=== PATIENT | male | born 1950 | race Caucasian/White ===

== ENCOUNTER → 2021-11-24 12:55 | Outpatient (CLI) | payer MEDICARE, SELFPAY ==
[2021-11-24 15:27] LABS: COVID19 -Nasal RAPID Negative (Negative)
== END ==
PROVIDERS: Visit Provider Family Medicine Sleep Medicine
DX: Z20.822 Contact with and (suspected) exposure to COVID-19 (principal)
CPT/HCPCS: 87635; C9803

== ENCOUNTER 2021-11-26 08:12 | Day surgery (SDC) | payer MEDICARE, SELFPAY ==
[2021-11-19 10:39] VITALS: BMI 43.7
[2021-11-26] VITALS (14 sets, daily range): BP systolic 140–167; BP diastolic 53–66; PULSE 63–82; RESP 12–18; TEMP 35.7–36.8; O2SAT 93–96; BMI 43.5; BMI 44.1
--- NOTE | 2021-11-26 06:00 | DI.RAD.S_ITS ---
PROCEDURE: XR KNEE LT 1TO2V INDICATIONS: TKA TECHNIQUE: 2 view(s) of the knee acquired. COMPARISON: None. FINDINGS: Bones: Patient is status post knee joint arthroplasty. Hardware components are in expected positions. Linear lucency traverses the medial tibial plateau as well as the fibular head. Soft tissues: Overlying postoperative changes are noted. IMPRESSION: 1. Indeterminate lucency within the medial tibial plateau and fibular head, possibly indicating nondisplaced fractures. This could be further assessed with CT, if clinically indicated. Dictated by: Bella Romo M.D. on 11/26/2021 at 14:19 Approved by: Bella Romo M.D. on 11/26/2021 at 14:21
[2021-11-26] MEDS: LACTATED RINGERS 1,000 ML 42 ML IV ×2 (09:21→13:14)
[2021-11-26] MEDS: ACETAMINOPHEN 325 MG TABLET 975 MG PO (09:59)
[2021-11-26] MEDS: PREGABALIN 75 MG CAPSULE PO (10:00)
[2021-11-26] MEDS: CELECOXIB 200 MG CAPSULE PO (10:00)
--- NOTE | 2021-11-26 10:40 | PM.PREOP ---
Pre-operative Note COVID-19 COVID-19 status: Negative Result date/Date tested (Pos, Neg/Pending): 11/24/21 Interval Note History & Physical reviewed/Exam performed by Physician: Yes Changes to H&P: No
[2021-11-26] MEDS: CEFAZOLIN 3 GM IN 0.9 % NACL 3 GM/100 ML PLAST..BAG IV (12:00)
[2021-11-26] MEDS: TRANEXAMIC ACID 1,000 MG VIAL 2000 MG INJ ×2 (12:10→13:19)
--- NOTE | 2021-11-26 12:21 | SUR.OPER ---
Supine on padded OR bed. Pillow under head, arms secured on padded armboards <90 degree abduction. Safety belt across torso. Non-operative leg secured with tape over blanket over lower leg. Operative leg secured in Sid boot. Foam padded brace at thigh of operative leg.
[2021-11-26] MEDS: BUPIVACAINE LIPOSOME 266 MG/20 ML VIAL INJ (12:29)
[2021-11-26] MEDS: BUPIVACAINE 0.25% (PF) 60 ML, EPINEPHrine 0.3 MG INJ (12:29)
[2021-11-26] MEDS: MORPHINE 4 MG/ML INJ INJ (12:30)
--- NOTE | 2021-11-26 13:40 | P.OP_ITS ---
Operative Date/Time/Diagnoses Date of procedure: 11/26/21 Time of procedure: 13:40 Pre-op diagnosis: Left knee osteoarthritis Post-op diagnosis: same Procedure & Clinicians Procedure: Left total knee replacement Same procedure as scheduled: Yes Indications: The patient has had progressively worsening left knee pain with radiographic changes consistent with arthritis. Non-operative management has failed and the patient has requested total knee replacement. The risks, benefits and alternatives to surgery were discussed with the patient prior to proceeding. Risks discussed included, but were not limited to, failure to relieve pain, stiffness, infection, nerve damage, deep venous thrombosis, pulmonary embolism, stroke, coma, heart attack, permanent paralysis and , as well as the potential need for eventual revision of the prosthetic. Surgeon: Radu Ortiz Rig Hand: Priyanka Benton Click Yes if Unassisted: No Anesthesia Type: General, Spinal and Local Operative Notes Findings: Severe tricompartmental osteoarthritis with mild patella baja. Closure Type: primary Specimen(s): none sent Prosthetic devices, grafts, tissues, transplants, or devices: Implants used in this procedure were manufactured by the [employer] and [employer] and included the BCS II Journey total knee replacement with a size 5 left cobalt chromium femur, a size 5 left non porous tibial base plate, a 9 mm cross-linked polyethylene tibial insert and a 35 mm oval Monica II patella. Applied: implant(s) Estimated Blood Loss (mL): 25 Blood products transfused: none Tourniquet time (min): 53 Procedure in detail: The patient was seen in the pre-operative area, where the left knee was identified as the operative site and this was marked with my initials. The patient received pre-operative antibiotics, and was taken to the operating room and placed on the operative table in the supine position. After satisfactory anesthesia, a time study statistician out was performed. The left leg was encircled with a tourniquet about the proximal thigh, and the leg was prepared from the toes to the tourniquet with ChloroPrep in the usual fashion and draped through sterile drapes. The leg was elevated and exsanguinated with Eschmark bandage and the tourniquet inflated to 250 mmHg pressure. The knee was approached through an approximately 18 cm incision centered over the patella and carried into the knee through a medial parapatellar arthrotomy. The anterior osteophytes and soft tissues were removed. The rotational landmarks of Lockbourne's line and the transepicondylar axis were marked on the femur with electrocautery, and intramedullary guide holes for the femur and tibia were created. The distal femoral cut was made in 6 degrees of valgus using the intramedullary guide at the +2 cut setting due to his flexion contracture. The proximal tibial cut was then made using the intramedullary guide, taking 9 mm of bone off the less involved side. The extension gap was checked and the rotation of the femoral component confirmed with the gap balancing blocks. The anterior, posterior and chamfer cuts were then made. The posterior osteophytes and soft tissues were then removed. The posterior capsule was injected with part of a mixture of 60 ml 0.25% Marcaine mixed with 20 ml Exparel and 4 mg of morphine for post-operative pain control. The remainder of this mixture was injected into the capsule and subcutaneous tissues during cement curing. The tibia was prepared with the rotation set by an extra medullary guide. Trial tibial and femoral components were then placed and the intercondylar notch cut through the femoral trial. Range of motion was 0-135 degrees, with good stability throughout the range. The patella was then cut to accommodate the patellar prosthetic. There was no need for a lateral release. The trials were then removed, and the femoral hole plugged with a bone plug. The bone was prepared with pulsatile lavage, and dried with a sponge. Cement was applied and the final prosthetics placed. Excess cement was removed during and after cement curing. After confirming there was no extruded cement posteriorly, the final tibial insert was placed. The knee was copiously irrigated and the tourniquet deflated. Hemostasis was obtained. The capsule was closed with interrupted # 2 polyester sutures. The subcutaneous layer was closed with 3-0 Vicryl, and the skin with a running 3-0 V-Lock suture and Dermabond. An Aquacel Ag dressing was applied and the patient was taken to recovery having tolerated the procedure well. Complications: none Post-operative Condition: stable Disposition: PACU Plan for aftercare: The patient will be maintained on a standard total knee replacement protocol with weight bearing as tolerated. The patient will receive aspirin and sequential compression devices for DVT prophylaxis. The patient will be discharged home when safe for the home environment.
[2021-11-26] MEDS: LACTATED RINGERS 1,000 ML 100 ML IV (14:30)
--- NOTE | 2021-11-26 15:32 | PC.NURSE ---
Addendum entered by Otto Farooq R.N. 11/26/21 15:36: pt reports mild sensation return in LLE. Original Note: pt arrived on Acute Care unit 11/26/2021 @ 7119. SCD's applied, LR @ 100 mL/hr started, and pt re[pr Arrival VS: BP: 146/55 HR: 68 bpm Resp: 14 O2Sat: 96% RA Temp: 97.5 F px: 0/10
[2021-11-26] MEDS: OXYCODONE IR 5 MG TABLET PO (16:16)
[2021-11-26] MEDS: IBUPROFEN 400 MG TABLET PO ×2 (16:16→20:55)
[2021-11-26] MEDS: ACETAMINOPHEN 325 MG TABLET 650 MG PO (19:08)
[2021-11-26] MEDS: lisinopriL 5 MG TABLET 2.5 MG PO (20:55)
[2021-11-26] MEDS: DOCUSATE 100 MG CAPSULE PO (20:55)
[2021-11-26] MEDS: ASPIRIN EC 81 MG TABLET PO (20:55)
[2021-11-26] MEDS: ATORVASTATIN 20 MG TABLET 80 MG PO (20:55)
[2021-11-27 00:11] VITALS: BP 142/53; PULSE 82; RESP 16; TEMP 37.2; O2SAT 94
[2021-11-27] MEDS: ACETAMINOPHEN 325 MG TABLET 650 MG PO ×3 (00:14→12:10)
[2021-11-27] MEDS: IBUPROFEN 400 MG TABLET PO ×4 (00:15→12:10)
[2021-11-27] MEDS: SODIUM CHLORIDE 0.9% FLUSH 10 ML IV (01:11)
[2021-11-27 06:42] LABS: Hematocrit 35.4 % (41-53); Hemoglobin 12.2 g/dL (13.5-17.5)
--- NOTE | 2021-11-27 07:39 | PM.DS.1 ---
History of Present Illness History of Present Illness Date Patient Seen: 11/27/21 Time Patient Seen: 07:39 Chief complaint: LT TKA 11/26 *OPB* Narrative: History and physical is contained in the chart previously completed note. Please refer to that note for this information. Discharge Providers Provider Date of admission: November 26, 2021 Discharge Date: 11/27/21 Primary care physician: Sonal Martinez MD Consults: 11/26/21 14:12 Consult to Discharge Planning Routine Comment: Consult to Physical Therapy Evaluate & Treat Comment: Physician Instructions: postop TKA protocol Discharge provider: Radu Ortiz MD Summary Hospital Course Discharge Diagnosis: 1. Left knee osteoarthritis 2. Post hemorrhagic anemia 3. Morbid obesity Hospital Course: Patient was admitted to the hospital and taken directly to the operating room on November 26, 2021. He underwent a total knee replacement without complication. The procedure was made more difficult by the patient's obesity. On postoperative day 1 he appeared stable with a mild post hemorrhagic anemia. At the time of this dictation the plan is for him to have physical therapy this morning and then be discharged to home. Status at Discharge Cognitive/behavioral status at discharge: oriented Functional status at discharge: uses cane/walker Overall status at discharge: patient is progressing back to baseline Time Spent with Patient Time spent: Less than 30 minutes Exam Vital Signs (past 8 hours): - 11/27/21 00:11 Temperature 98.9 F Pulse Rate 82 Respiratory Rate 16 Blood Pressure 142/53 H Pulse Oximetry 94 Oxygen Delivery Method Room Air Narrative Exam Narrative: Left knee wound is dressed with no drainage on the bandage. Calf is soft. Light touch and motion are intact in the left lower extremity. 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 He has a mild post hemorrhagic anemia which should resolve spontaneously. Plan of Treatment: Physical therapy this morning with plan to discharge afterwards. Follow-up in my office in 2 weeks. Discharge medications have been sent to his pharmacy. These include oxycodone for pain, Tylenol and ibuprofen for additional pain control and aspirin for DVT prophylaxis. Discharge Plan Discharge Plan Patient Disposition: Home Discharge orders & Medications Discharge Orders: Discharge (Order); Ordered 11/27/21 Ordered By: Radu Ortiz Prescriptions: New acetaminophen 325 mg Tablet 650 mg PO Q6HR 30 Days 0RF aspirin 81 mg Tablet,Delayed Release (Dr/Ec) 81 mg PO BID 42 Days Qty: 84 0RF ibuprofen 400 mg Tablet 400 mg PO Q4HR 30 Days 0RF oxycodone 5 mg Tablet 5 mg PO Q4H PRN (Reason: Pain, Moderate (4-6)) Qty: 40 0RF Continued tamsulosin 0.4 mg Capsule 0.4 mg PO BEDTIME 0RF diclofenac sodium 75 mg Tablet,Delayed Release (Dr/Ec) 75 mg PO DAILY 0RF fluticasone propionate 50 mcg/actuation [place],Suspension 1 spray INTRANASAL DAILY PRN (Reason: Seasonal allergies) 0RF Rx Instructions: administer into each nostril lisinopril 2.5 mg Tablet 2.5 mg PO BEDTIME 0RF rosuvastatin 40 mg Tablet 40 mg PO BEDTIME 0RF Discontinued aspirin 81 mg Capsule 81 mg PO DAILY 0RF Follow up/Referrals: Radu Ortiz MD [Physician] - 2 Weeks Sonal Martinez MD [Primary Care Provider] - Diet/Activity/Treatments Diet: Diet as Tolerated and Regular Activity: You may bear weight as tolerated on your left leg. Cold/Heat Therapy: You may apply ice for 15 minutes every hour to the left knee as needed for pain control. Skin/Wound/Dressing Care Report to your healthcare provider any signs of infection, such as:: chills, fever, night sweats, increased pain, unusual drainage and unusual redness Dressing: You may remove the Ollie wrap 3 days after surgery and shower normally with the deeper dressing in place. Leave the deeper dressing in place until you are seen in follow-up. If the central strip of the deeper dressing becomes saturated with either water or blood, please call the office to have it evaluated. Visit Report/Discharge Packet Instructions: DI for Knee Replacement Stand Alone Forms: Surgery Discharge Discharge Data Primary Care Provider: Sonal Martinez Attending Provider: Radu Ortiz VTE Deep Vein Thrombosis/Pulmonary Embolism Present on Admission: No
[2021-11-27 08:00] VITALS: BP 119/54; PULSE 77; RESP 16; TEMP 37.4; O2SAT 94
[2021-11-27] MEDS: ASPIRIN EC 81 MG TABLET PO (08:09)
[2021-11-27] MEDS: DOCUSATE 100 MG CAPSULE PO (08:09)
[2021-11-27] MEDS: OXYCODONE IR 10 MG TABLET PO ×2 (08:38→12:10)
--- NOTE | 2021-11-27 10:41 | CM.DANOTE ---
DCP: Case received, EMR reviewed and met with patient. Introduced self and role. Was able to obtain information regarding patient's baseline activity status prior to his surgery. DCP assessment completed with information currently available. Patient is a 71 year old male who admitted yesterday morning to the care of the orthopedic team. PCP: Dr. Martinez. Payer: confirmed: Medicare/[employer]. Patient came to the hospital via private vehicle for a surgical procedure. Patient had a left total knee replacement. Patient has history of unilateral primary osteoarthritis. Met with patient in his room. He is alert and oriented, and was sitting up in his chair by his bed. Confirmed with him that he resides in [facility] with spouse, Colette. At his baseline, he is independent, drives, and uses no DME. He and his also have a place in [place], and recently came back from there. P: Patient has discharge orders for home today, pending working with Georgette Hill RN/Director Law Enforcement Discharge Planning/Care Management CM Discharge Assessment Start: 11/27/21 10:39 Freq: Status: Active Protocol: Document 11/27/21 10:39 (Rec: 11/27/21 10:41 [id number]) Discharge Planning Assessment Assigned Carpet Finishing Supervisor Ruba Hill RN/Director Law Enforcement Advance Directives? No History Provided By Patient,Medical Record Prior Living Arrangements House Household Members spouse Type of transporation used prior to Drives own vehicle admit Independent with ADL's Yes Is patient alert and oriented? Yes Caregiver for Another No Patient/Family Preference OP PT Therapy Barriers to Discharge No Discharge Plan Home Transportation Arrangement Spouse Referrals Initiated None needed Review Status In Process Next Review Type Continued Stay Review Pre-Anesthesia Assessment Start: 11/19/21 10:39 Freq: Status: Active Protocol: Document 11/19/21 10:39 CAB (Rec: 11/19/21 11:32 CAB [id number]) Pre-Anesthesia Assessment Patient Information Reviewed Via Phone Assessment Assessment Completed With Patient H&P Completed Within 30 Days Yes Diagnostic Results BMP/CMP,CBC,EKG Comment Outside labs/ECG scanned, COVID screen @ 11/24/21 Primary Care Provider Sonal Martinez Seen Specialist in Last 12 Months Yes Specialist Seen Orthopedist Primary Language Frisian Policy Change Clerks Supervisor Required No Height 5 ft 9 in Weight 296 lb Body Mass Index (BMI) 43.7 Hearing Ability Normal Visual Assist Glasses Dentition Type Teeth, Natural Present,Teeth, Missing Barriers to Learning None Hx Anesthesia Reactions No Hx Family Anesthesia Reaction No Hx Malignant Hyperthermia No Hx Blood Transfusions No Anesthesia Review Requested No alcohol intake current Alcohol Intake Frequency Other: Occasional Smoking Status Former smoker Tobacco type cigarettes,pipe,cigars how long ago did patient quit smoking Quit 1984 Substance Use Type does not use Pain Present Pain Reported Musculoskeletal Symptoms Abnormal Gait,Back Pain, Difficulty Walking,Joint Pain History of Falling (Recent or History of No ) Patient is completely paralyzed or No completely immobile Mental Status Oriented to own ability Is patient on oxygen? No Does patient have REEVES/SOB Yes: With long distance walking Hx Sleep Apnea No Suspected Sleep Apnea Yes: Positive STOP BANG Currently Taking a Beta Se[place] No Can You Climb a Flight of Stairs Without No SOB Hx SOB Yes: With long distance walking Anti-Coagulant Therapy Yes: ASA 81mg for hx of DVT-pt will check w/pcp if needed to hold Has a Tacking Machine Operator No Cardiac Testing No Hx Pacemaker/ICD No Pacemaker Rep Required? No Diet Type At Home Regular dysphagia No Bladder Pattern Frequency,Urgency Urinary Catheter Present No Hx Urinary Self Catheterization No Diabetes No HgbA1C 5.7 Date 11/06/21 Presence of External or Internal Medical Yes: Right knee, left hip Devices Have you had any close contact with No someone diagnosed with COVID-19? Received a COVID vaccine? Yes Received all doses? Yes Marital Status Lives With spouse Prior Living Arrangements House Number of Floors (Floors) One Floor Support System Spouse Does the Patient Have Assistance After Yes Surgery Patient Discharge Plan Description Return Home Comment Pt advised overnight length of stay per surgeon Feels Safe in Current Environment Yes Been Physically Hurt or Threatened By a No Person in Current Environment Do you have thoughts of harming yourself None or others? Are you currently considering suicide? No Do you have a plan to hurt yourself or No Plan others? Do You Have Any Spiritual Beliefs That No May Affect Your HC Choices? Do You Have Any Cultural Practices That No May Affect Your HC Choices? Who Can We Speak to About Patient's Care Family, friends Identifying Code for Release of Patient Declines to issue Information Health Care Proxy/Next of Kin Colette () Health Care Proxy Emergency Contact Name Colette () Emergency Contact Advance Directives? No Power of Sanding Machine Tender No PAC Instructions Durable medical equipment, Medications to take/avoid, Nasal antibiotic,No ETOH/ petroleum product on skin DOS, NPO,Post-op transportation, Sensory aids,Sturdy shoes/ comfortable clothes,Do not bring valuables and remove jewelry Stop Bang Assessment Do you snore loudly (louder than talking Yes or loud enough to be heard through closed doors) Do you often feel tired, fatigued or Yes sleepy during the daytime Has anyone ever observed you stop Yes breathing while sleeping? Do you have, or are you being treated Yes for, high blood pressure Is your BMI more than 35 kg/m2 Yes Age over 50 Yes Estimated neck circumference greater Yes than 40cm or 16in Gender male Yes Result Positive
--- NOTE | 2021-11-27 10:42 | PT.IIE ---
Current Diagnoses Unilateral primary osteoarthritis, left knee (11/26/21) Surgery Performed Operation Date: 11/26/21 10:15 Actual Procedures p Total Knee Arthroplasty(Left) - Radu Ortiz MD Medical History (Last Updated 11/26/21 @ 09:01 by Lonny Mendoza RN) Arthritis Diverticulosis DVT (deep venous thrombosis) (02/2016) Easy bruisability HLD (hyperlipidemia) HTN (hypertension) Kidney stones Osteoarthritis Seasonal allergies Suspected sleep apnea Physical Therapy Inpatient Evaluation/Re-Eval M1 PT/OT-IP Prior Functional Status Start: 11/27/21 11:48 Freq: NEEDED Status: Active Protocol: Document 11/27/21 10:42 AB (Rec: 11/27/21 12:01 AB [id number]) Medical Review Prior Functional Status Medical History Reviewed Yes Communication able to make needs known Mobility and Gait pt stated that he is modified independent with all mobilities and ambulation without AD Social History Household Members spouse Living Arrangements House Number of Floors (Floors) One Floor Number of Stairs To Enter/Railing? small threshold step ~1-2 in Home Environment Standard Height Toilet,Walk in Shower,Built-In Shower Seat Home Equipment Front Wheel Walker,Straight Cane,Hand Held Shower,Grab Bars Near Toilet,Grab Bars In Shower Employment Status Retired M2 PT-IP Current Condition Start: 11/27/21 11:48 Freq: NEEDED Status: Active Protocol: Document 11/27/21 10:42 AB (Rec: 11/27/21 12:01 AB [email or web address]) Physical Therapy Current Condition Current Condition Evaluation Date 11/27/21 Treatment Diagnosis s/p L TKA; difficulty in walking Onset Date 11/26/21 M3 PT-IP Subjective Start: 11/27/21 11:48 Freq: NEEDED Status: Active Protocol: Document 11/27/21 10:42 AB (Rec: 11/27/21 12:01 AB [email or web address]) Subjective Physical Therapy Visit Type Type Initial Evaluation Visit Start Time 10:42 Visit Stop Time 11:15 Total Visit Minutes 33 Number of PHONE COUNSELOR Visits 0 Physical Therapy Visit Comments Patient Comments agreeable to do PT Therapy Pain Assessment Pain Present Pain Present Denied Pain M4 PT-IP Mobility and Gait Start: 11/27/21 11:48 Freq: NEEDED Status: Active Protocol: Document 11/27/21 10:42 AB (Rec: 11/27/21 12:01 AB [id number]) PT-Bed Mobility Assessment Supine to Sit Supine to Sit Maximum Assistance,1 Person Assistance Sit to Supine Sit to Supine Standby Assistance PT-Transfer Assessment Sit to and From Stand Sit to and from Stand Standby Assistance,Maximum Assistance,1 Person Assistance ,Use of Upper Extremities Equipment Transfer Assistive Device Gait Belt,Front Wheeled Walker Orthotic/Prosthetic Devices or Brace: No Transfers Transfer Destination Bed,Chair Transfer Technique Stand Step Pivot Transfer Ability Level of Assist Standby Assistance,1 Person Assistance,Use of Upper Extremities Comments Mobility Comments pt sitting on chair. completed sit to stand SBA and step transfer to bed SBA using FWW. completed sit to supine SBA. max A for supine to sit . pt stated that the bed sinks down and hard for him to push up from. completed sit to stand from EOB max A and cues. ambulated out in the hallway using fWW SBA to CGA ~ 30 ft. educated up/down platform step . completed up/down step x 2 attempts CGA and cues for quads activation. pt stated that step at home is small ~ 1 -2 inches only. pt ambualted back to his room using FWW SBA to CGA. positioned pt on the chair. call light and table placed within reach. pt refused caregiver training. Gait Assessment Gait Gait Assistance Required: Standby Assistance,Contact Guard Assist Distance (Feet) 30 Able to Maintain Weight Bearing Status Yes During Gait Assistive Devices Assistive Device Gait Belt,Front Wheeled Walker Orthotic/Prosthetic Devices or Brace: No Gait Deviations General Gait Pattern Antalgic,Decreased Stride Length,Decreased Feet Clearance Factors Limiting Gait Function Factors Limiting Gait Function Decreased Activity Tolerance, Decreased Strength,Limited Range of Motion,Pain,Poor Balance,Poor Safety Awareness Stair Climbing Assessment Evaluation Level of Assist On Stairs Contact Guard Assistance,1 Person Assistance Devices Stair Climbing Assistive Devices Front Wheel Walker Technique/Endurance Stair Climbing Direction Ascend and Descend Stair Climbing Technique Step to Step Number of Steps Climbed 1 Query Text: Stair Climbing Set # Repetitions (reps) 1 PT-Balance Assessment Sitting Balance and Reactions Static Sitting Balance Ability Good Dynamic Sitting Balance Ability Good Standing Balance and Reactions Static Standing Balance Ability Fair Dynamic Standing Balance Ability Fair Device Used FWW M5 PT-IP Objective Assessments Start: 11/27/21 11:48 Freq: NEEDED Status: Active Protocol: Document 11/27/21 10:42 AB (Rec: 11/27/21 12:01 [id number]) Orientation Orientation/Cognition Level of Alertness Alert Orientation Name,Place,Situation Language Function Ability No Deficits Noted Safety Awareness Understands Safety Issues, Decreased Safety Awareness Memory Description No Deficits Noted Gross Range of Motion Lower Extremity ROM Assessment Left Impaired Impairments L flexion: ~ 40 deg Strength Lower Extremity Strength Assessment Left Impaired Hip 3+/5 Knee 3+/5 Coordination Assessment Gross Coordination Gross Coordination WNL Sensation Assessment Sensation Gross Sensation WNL Muscle Tone Muscle Tone WNL Yes M6 PT-IP Treatment Start: 11/27/21 11:48 Freq: NEEDED Status: Active Protocol: Document 11/27/21 10:42 AB (Rec: 11/27/21 12:01 [email or web address]) Physical Therapy Treatment Exercises Exercises Heel Slides Education Education Provided Precautions,Weight Bearing Status,Post-Op Packet,Safety M7 PT-IP Assessment and Plan Start: 11/27/21 11:48 Freq: NEEDED Status: Active Protocol: Document 11/27/21 10:42 AB (Rec: 11/27/21 12:01 [email or web address]) PT Summary Assessment and Plan Potential Rehabilitation Potential Good Status of Condition at Evaluation Stable Summary Impairments Pain,ROM,Strength,Balance, Coordination,Sensation,Tone, Cognition,Bed Mobility, Transfers,Gait,Activity Tolerance Assessment Summary pt requiring max A with bed mobility, SBA to CGA for transfers sherine mbulation. pt plans to have his spouse assist him. refused caregiver training. stated that spouse was trained when he has his R knee done ~ 2 years ago. pt is set up for caregiver taining. Goals Bed Mobility Goal Independent Transfer Goal Independent,Front Wheeled Walker Gait Goal Independent,Front Wheel Walker Gait Distance 300 Other Goals up/down platformed SBA using FWW Days to Meet Goals 5 Frequency of Treatment Frequency Of Treatment Twice a Day Treatment Plan Physical Therapy Treatment Plan Bed Mobility Training,Transfer Training,Gait Training, Therapeutic Exercise,Balance Retraining,Post Op Education, Discharge Planning,Hot or Cold Pack,Neuromuscular Re-ed, Coordination Retraining,Manual Therapy Weight Bearing Status Weight Bearing Status Weight Bear as Tolerated Allowed Weight Bearing Amount (enter % LLE WBAT or #) (%) Recommendations To Nursing Amount of Assist Needed 1 Person Assist Discharge Recommendations PT Discharge Recommendations Home with Assistance, Outpatient PT Transportation Needs at Discharge Private Vehicle
--- NOTE | 2021-11-27 17:06 | PC.NURSE ---
pt reported 7/10 px in left knee, dressing CDI, ambulated minimal 1A wth fww. Administered pain medication per [facility] orders. Went through discharge packet with pt and confirmed understanding of all documents discussed. Confirmed pt had all personal effects. Pt was accompanied by spouse at time of discharge and escorted via wheelchair by hospital personnel to pt's POV on 11/27/2021 at 1220.
== END 2021-11-27 12:20 | disposition home or self-care (01) ==
LOC: OR 08:16 → AC 08:16
PROVIDERS: PCP Student in an Organized Health Care Education/Training Program; Referring Provider Orthopaedic Surgery; Visit Provider Orthopaedic Surgery
PROC: 0SRD0JZ Replacement of Left Knee Joint with Synthetic Substitute, Open Approach (ICD-10-PCS; CPT 27447; principal; 2021-11-26 10:15)
DX: M17.12 Unilateral primary osteoarthritis, left knee (principal); I10 Essential (primary) hypertension; E78.5 Hyperlipidemia, unspecified; D50.0 Iron deficiency anemia secondary to blood loss (chronic); E66.01 Morbid (severe) obesity due to excess calories; Z68.41 Body mass index [BMI] 40.0-44.9, adult
CPT/HCPCS: 27447; 36415; 73560; 85014; 85018; 97161; C1776; C1713; C9290; J0171; J0690; J2250; J2270; J3010